=== PATIENT | female | born 1970 | race Caucasian/White ===

== ENCOUNTER 2016-11-08 10:07 | Outpatient (CLI) | payer OTHER | END 2016-11-08 10:08 | disposition home or self-care (01) | DX: Z12.31 Encounter for screening mammogram for malignant neoplasm of breast (principal); R92.8 Other abnormal and inconclusive findings on diagnostic imaging of breast ==

== ENCOUNTER 2016-12-10 07:40 | Outpatient (CLI) | payer OTHER | END 2016-12-10 07:41 | disposition home or self-care (01) | DX: K76.0 Fatty (change of) liver, not elsewhere classified (principal) ==

== ENCOUNTER 2016-12-12 11:14 | Outpatient (CLI) | payer OTHER ==
--- NOTE | 2016-12-12 16:20 | Mammography Report ---
DIGITAL DIAGNOSTIC LEFT MAMMOGRAM: 12/12/2016 CLINICAL INDICATION: Left breast calcifications. COMPARISON: 11/08/2016. TECHNIQUE: Left true lateral and spot magnification views were obtained. FINDINGS: The left breast again demonstrates heterogeneously dense fibroglandular parenchyma. The ca lcifications in the left lower slightly inner anterior breast demonstrate some punctate and some laye ring morphologies. No significant pleomorphism is seen. No associated mass is identified. IMPRESSION: PROBABLE BENIGN CALCIFICATIONS. RECOMMENDATION: DIAGNOSTIC LEFT MAMMOGRAM IN SIX MONTHS. BIRADS CATEGORY 3-PROBABLE BENIGN FINDINGS. STANDARD QUALIFYING STATEMENTS 1. This examination was reviewed with the aid of Computer-Aided Detection (CAD). 2. A negative or benign imaging report should not delay biopsy if clinically suspicious findings are present. Consider surgical consultation if warranted. More than 5% of cancers are not identified by i maging. 3. Dense breasts may obscure an underlying neoplasm. JOB #: [id number] EXT JOB #:[id number]
== END 2016-12-12 11:15 | disposition home or self-care (01) ==
LOC: DI 11:14
PROVIDERS: ATTEND Nurse Practitioner Obstetrics & Gynecology
DX: R92.2 Inconclusive mammogram (principal)